=== PATIENT | female | born 1985 | race Caucasian/White ===

== ENCOUNTER 2024-05-09 11:49 | Emergency (ER) | payer MEDICAID ==
[~2024-05-09] VITALS: Ht 163.8 cm; Wt 105.0 kg
[2024-05-09] MEDS ORDERED: TAM75C PO (14:54)
[2024-05-09] MEDS ORDERED: IBUP-862 PO (14:54)
[2024-05-09] MEDS ORDERED: PROM118S5 PO (14:54)
[2024-05-09 15:04] VITALS: BP 140/71; PULSE 70; RESP 16; TEMP 98; O2SAT 99
== END 2024-05-09 15:02 | disposition home or self-care (01) ==
LOC: ER 11:50
DX: J10.1 Influenza due to other identified influenza virus with other respiratory manifestations (principal); G89.29 Other chronic pain; M54.9 Dorsalgia, unspecified; Z88.5 Allergy status to narcotic agent; Z91.040 Latex allergy status; Z91.018 Allergy to other foods
CPT/HCPCS: 87502; 87503; 99283